=== PATIENT | female | born 1985 | race Caucasian/White ===

== ENCOUNTER 2021-02-18 02:25 | Inpatient (IN) | payer MEDICAID, SELFPAY ==
[2021-02-18 02:20] VITALS: BMI 23.0
[2021-02-18 02:26] VITALS: BP 135/83; PULSE 94; RESP 20; TEMP 36.5; O2SAT 98; BMI 23.0
[2021-02-18 02:39] LABS: Basophils # 0.1 K/mm3 (0-0.2); Basophils % 0.8 % (0.1-2.0); Eosinophils % 0.5 % (0.1-12.0); Hematocrit 33.5 % (37.0-47.0); Hemoglobin 11.1 g/dL (12.2-16.2); Lymphocytes # 2.3 K/mm3 (0.7-4.5); Mean Corpuscular Hemoglobin 28.4 pg (27.0-31.2); Mean Corpuscular Volume 86.2 fl (81-99); Mean Platelet Volume 9.6 fl (7.4-10.4); Monocytes # 0.4 K/mm3 (0.1-1.0); Monocytes % 4.7 % (1.7-9.3); Neutrophils # 5.4 K/mm3 (1.8-7.8); Platelet Count 291 K/mm3 (142-424); Red Blood Count 3.89 M/mm3 (4.20-5.40); Red Cell Distribution Width 15.8 % (11.5-17.5); White Blood Count 8.1 K/mm3 (4.8-10.8)
[2021-02-18 02:42] LABS: Coronavirus 19, PCR Not Detected (NotDetected); Influenza A, PCR Not Detected (NotDetected); Influenza B, PCR Not Detected (NotDetected)
[2021-02-18 02:57] LABS: Chloride 108 mmol/L (98-107)
[2021-02-18 02:58] LABS: Potassium 3.6 mmoL/L (3.5-5.1); Sodium 137 mmol/L (136-145)
[2021-02-18 03:00] LABS: Blood Urea Nitrogen 6 mg/dl (7-17); Creatinine Clearance Estimated 186 mL/min (50-200); Estimated Glomerular Filt Rate 184 ml/min (>60); GFR (African American) 222 ML/MIN (>60)
[2021-02-18 03:01] LABS: Anion Gap 9.6 mEq/L (5-15); Calcium 8.3 mg/dl (8.4-10.2); Carbon Dioxide 23 mmol/L (22.0-30.0); Glucose 91 mg/dl (74-100)
--- NOTE | 2021-02-18 03:28 | HMH.ANESCL ---
[facility] Anesthesia Checklist - Patient Identification Patient Identification: Arm Band - Structural Data Admitted From: Home Planned Operative Procedure/s: Labor epidural Consent for Planned Operative Procedure(s) Verified: Yes - NPO Status Verified Time NPO: 00:00 - Airway Assessment C-Spine Mobility Assessed: Yes TMJ Mobility Assessed: Yes Dentition: Good Dentition - Neurological Assessment Level of Consciousness: Awake Hx Seizures: No Numbness or tingling in extremities: No - Anesthesia Plan Anesthesia Risk discussed: Yes Anesthesia Plan: Verified ASA Class: II Anesthesia Type: Epidural [facility] History I have reviewed the patient's past medical history: Yes *Have you ever received a pneumonia vaccine?: No *Have you received a flu vaccine this season?: No Anesthesia experience/problems:: None - *Social History Smoking Status: Unknown if ever smoked Alcohol Intake: current Alcohol Intake Frequency:: other Substance Use Type: heroin Last Used Substance: hours (ago) *Occupational Status:: other (Unknown) *Travel in the last 8 weeks: None Family Hx:: Unable to obtain
--- NOTE | 2021-02-18 03:55 | HMH.DN ---
- Delivery Note Delivery Date:: 02/18/21 Delivery Time:: 03:44 Anesthesia Type: Epidural Was labor medically induced?: No Induction method: none Gestational age (weeks): 40 delivered prior to 39 weeks?: No Justification for early elective delivery:: Active Labor Gender: Female at 1 minute: 9 at 5 minutes: 9 Delivery Procedure:: She is a 35-year-old 6 para 3 aborta 2 who was 40 weeks gestational age. She has been having her care in [facility] although it is not clear how much care she has had. At times during the she has been incarcerated. She is a heroin addict. She was on a methadone program for a while but most recently she has not been taking methadone. She has not had a way of getting to the methadone clinic she says. She says that she most recently used heroin yesterday. She came in in active labor and spontaneously rupture membranes. She rapidly progressed to full dilation and delivered spontaneously a liveborn female child at 3:44 AM on the morning of February 18, 2021. On deliver the head the anterior shoulder easily delivered followed by the rest of his body atraumatically. The baby was active and crying. I used DeLee suction to suction out the mouth and nose. There was some terminal meconium and the baby was covered in yellow amniotic fluid. We allowed the cord to continue to pulsate for approximately 1 minute. The cord was then doubly clamped and cut and the was handed off to Dr. Vidales who assigned Apgars of 9 at 1 minute and 9 at 5 minutes. She received IV oxytocin using gentle traction the cord and countertraction on the fundus I was able to easily deliver the placenta intact at 3:51 AM. It had a normal three-vessel cord. It was stained with meconium. There were no perineal or vaginal lacerations. We are not sure what her blood type is at this point in time. She plans to bottlefeed. Her estimated blood loss was approximately 150 cc. Placental Delivery Description: Spontaneous
--- NOTE | 2021-02-18 03:59 | HMH.OBAPHP ---
OB - H&P: HPI Antepartum - History of Present Illness Chief complaint: Contractions History of present illness: She is a 35-year-old 6 para 3 aborta 1 who is 40 weeks gestational age. She was seen at [facility] early in and had an ultrasound that confirmed her dates. It is unclear how much care she has had at [facility] in [facility]. She has been incarcerated at some point time in her . She is a heroin addict. She was receiving methadone at one point in time. She apparently did not have a ride to get to the clinic. She used heroin yesterday. She arrived in active labor and progressed rapidly to full dilation. - History of Present Criteria for establishing EDC:: LMP confirmed by 1st trimester US care: limited care Ultrasounds: normal 1st trimester US Obstetrical complications: other Medical complications: other Narrative: Heroin abuse during - Labs Blood type: O (+) positive Rubella: unknown RPR/VDRL: unknown GBS status: unknown HBsAG: unknown [facility] History I have reviewed the patient's past medical history: Yes Medical History: Denies:: Seizures *Have you ever received a pneumonia vaccine?: No *Have you received a flu vaccine this season?: No Anesthesia experience/problems:: None - *Social History Smoking Status: Unknown if ever smoked Alcohol Intake: current Alcohol Intake Frequency:: other Substance Use Type: heroin Last Used Substance: hours (ago) *Occupational Status:: other (Unknown) *Travel in the last 8 weeks: None Family Hx:: Unable to obtain Review of Systems - Review of Systems Review of systems:: pertinent systems reviewed and negative unless documented below Meds Allergies Allergy/AdvReac Type Severity Reaction Status Date / Time No Known Allergies Allergy Verified 02/18/21 02:26 OB - H&P: Exam - Constitutional no acute distress - Routine HEENT Exam Head: Present: normocephalic Eye: Present: EOMI, PERRL ENT: Present: mucous membranes moist - Routine Neck Exam Present: supple, full ROM - Routine Respiratory Exam Absent: accessory muscle use (good air entry bilaterally), respiratory distress, wheezes, crackles - Routine Cardiovascular Exam Present: RRR. Absent: murmur - Routine Abdominal Exam Present: soft, normoactive bowel sounds. Absent: tenderness, distended, guarding - Routine Rectal Exam Patient deferred: visual exam, digital exam - Routine Exam Patient deferred: external exam, groin exam, perineal exam - Routine Extremities Exam Present: full ROM. Absent: cyanosis, edema - Routine Skin Exam Present: intact. Absent: cyanosis - Routine Neurological Exam Present: alert, oriented X3 - Routine Psychiatric Exam Present: normal affect OB - Results - Labs Labs: Short CBC 02/18/21 Range/Units 02:10 WBC 8.1 (4.8-10.8) K/mm3 Hgb 11.1 L (12.2-16.2) g/dL Hct 33.5 L (37.0-47.0) % Plt Count 291 (142-424) K/mm3 BMP 02/18/21 02:10 Sodium 137 Potassium 3.6 Chloride 108 H Carbon Dioxide 23 BUN 6 L Creatinine 0.40 L Glucose 91 Calcium 8.3 L OB - A/P Antepartum (1) Normal delivery at term Status: Acute (2) Maternal drug use complicating , antepartum Status: Acute (3) complicated by maternal drug use, delivered, current hospitalization Status: Acute - Additional Plan Planning to breastfeed?: No Plan: other
--- NOTE | 2021-02-18 10:07 | P.PN_ITS ---
Internal Medicine - PN: Subj *Date: 02/18/21 *Time: 10:07 Interval history: She is doing well this morning. She is eating and drinking and ambulating. Her lochia is normal. Exam Vital signs and Labs for Last 24 Hours: Temp Pulse Resp BP Pulse Ox 97.7 F 94 H 20 135/83 98 02/18/21 02:26 02/18/21 02:26 02/18/21 02:26 02/18/21 02:26 02/18/21 02:26 Laboratory Results - last 24 hr 02/18/21 02:10: WBC 8.1, RBC 3.89 L, Hgb 11.1 L, Hct 33.5 L, MCV 86.2, MCH 28.4, MCHC 33.0, RDW 15.8, Plt Count 291, MPV 9.6, Neut % (Auto) 66.0, Lymph % (Auto) 28.0, [place] % (Auto) 4.7, Eos % (Auto) 0.5, Baso % (Auto) 0.8, Neut # (Auto) 5.4, Lymph # (Auto) 2.3, [place] # (Auto) 0.4, Eos # (Auto) 0.0, Baso # (Auto) 0.1 02/18/21 02:10: Sodium 137, Potassium 3.6, Chloride 108 H, Carbon Dioxide 23, Anion Gap 9.6, BUN 6 L, Creatinine 0.40 L, Estimated Creat Clear 186, Estimated GFR 184, Est GFR ( Amer) 222, Glucose 91, Calcium 8.3 L 02/18/21 02:10: Blood Type O Positive, Antibody Screen Negative 02/18/21 02:37: SARS-CoV-2 (PCR) Not detected, Influenza A Untype (PCR) Not detected, Influenza Type B (PCR) Not detected I & O for Last 24 hours: Intake & Output 02/15/21 02/16/21 02/17/21 02/18/21 11:59 11:59 11:59 11:59 Weight 130 lb - Constitutional no acute distress - *Routine HEENT Exam Head: Present: normocephalic Eye: Present: EOMI, PERRL ENT: Present: mucous membranes moist Assessment and Plan (1) Normal delivery at term Status: Acute Category: Medical Code(s): O80 - Encounter for full-term uncomplicated delivery (2) Maternal drug use complicating , antepartum Status: Acute Category: Medical Code(s): O99.320 - Drug use complicating , unspecified trimester (3) complicated by maternal drug use, delivered, current hospitalization Status: Acute Category: Medical Code(s): O99.324 - Drug use complicating childbirth; F19.90 - Other psychoactive substance use, unspecified, uncomplicated - Assessment and plan all Dx Assessment and Plan for all problems:: She is doing well this morning. We will plan to send her home in 48 hours.
[2021-02-18 13:11] LABS: Microscopic, Urine URINE MICROSCOPIC (MICROSCOPIC)
[2021-02-18 13:14] LABS: Appearance,Urine SL CLOUDY (Clear); Bilirubin,Urine Negative (Negative); Blood, Urine 3+ (Negative); Color,Urine YELLOW (Yellow); Glucose,Urine (UA) Negative (Negative); Ketones,Urine Negative (Negative); Leukocyte Esterase,Urine TRACE (Negative); Nitrate,Urine Negative (Negative); PH,Urine 6.5 (5.0-8.5); Protein,Urine Negative (Negative); Specific Gravity, Urine 1.015 (1.005-1.030)
[2021-02-18 13:26] LABS: Bacteria,Urine 1+ /lpf; RBC,Urine 20-50 #/hpf (0-3)
[2021-02-18 13:27] LABS: Amphetamine/Metha Screen,Urine Positive ng/ml (<1000); Barbiturates Screen,Urine Negative ng/ml (<200)
[2021-02-18 13:28] LABS: Benzodiazepines Screen,Urine Negative ng/ml (<200)
[2021-02-18 13:29] LABS: Cannabinoid Screen,Urine Negative ng/ml (<50); Cocaine Screen,Urine Negative ng/ml (<300)
[2021-02-18 13:30] LABS: Methadone Screen,Urine Negative ng/ml (<300)
[2021-02-18 13:31] LABS: Opiate Screen,Urine Negative ng/ml (<300); Phencyclidine Screen,Urine Negative ng/ml (<25)
[2021-02-18 19:37] VITALS: BP 147/85; PULSE 85; RESP 18; TEMP 36.4; O2SAT 99
[2021-02-19 08:00] VITALS: BP 126/74; PULSE 93; RESP 20; TEMP 36.5; O2SAT 99
[2021-02-19 08:57] LABS: Basophils % 0.4 % (0.1-2.0); Eosinophils # 0.1 K/mm3 (0.0-0.4); Eosinophils % 0.6 % (0.1-12.0); Hematocrit 30.7 % (37.0-47.0); Hemoglobin 10.4 g/dL (12.2-16.2); Lymphocytes # 2.6 K/mm3 (0.7-4.5); Lymphocytes % 27.5 % (10-50); Mean Corpuscular HGB Conc 33.9 g/dL (31.8-35.4); Mean Corpuscular Hemoglobin 28.9 pg (27.0-31.2); Mean Corpuscular Volume 85.2 fl (81-99); Mean Platelet Volume 9.7 fl (7.4-10.4); Monocytes # 0.4 K/mm3 (0.1-1.0); Monocytes % 4.3 % (1.7-9.3); Neutrophils # 6.4 K/mm3 (1.8-7.8); Neutrophils % 67.2 % (37.0-80.0); Platelet Count 295 K/mm3 (142-424); Red Blood Count 3.61 M/mm3 (4.20-5.40); Red Cell Distribution Width 16.1 % (11.5-17.5); White Blood Count 9.5 K/mm3 (4.8-10.8)
--- NOTE | 2021-02-19 10:45 | P.PN_ITS ---
Internal Medicine - PN: Subj *Date: 02/19/21 *Time: 10:45 (This is day #1. The patient is afebrile. Hemoglobin 10.4 g. Uterine fundus involuting well. Lochia normal. Patient tested positive for amphetamines, and the baby is having withdrawal symptoms. Lochia is normal. Impression: Stable. Plan is for discharge tomorrow.) Exam Vital signs and Labs for Last 24 Hours: Temp Pulse Resp BP Pulse Ox 97.7 F 93 H 20 126/74 99 02/19/21 08:00 02/19/21 08:00 02/19/21 08:00 02/19/21 08:00 02/19/21 08:00 Laboratory Results - last 24 hr 02/18/21 12:05: Urine Color Yellow, Urine Appearance Sl cloudy, Urine pH 6.5, Ur Specific [place] 1.015, Urine Protein Negative, Urine Glucose (UA) Negative, Urine Ketones Negative, Urine Blood 3+, Urine Nitrate Negative, Urine Bilirubin Negative, Urine Urobilinogen 1.0, Ur Leukocyte Esterase Trace, Urine RBC 20-50, Urine WBC 5-10, Ur Squamous Epith Cells 3-5, Urine Bacteria 1+ 02/18/21 12:05: Urine Opiates Screen Negative, Urine Methadone Screen Negative, Ur Barbituates Screen Negative, Ur Phencyclidine Scrn Negative, Ur Amphetamines Screen Positive H, U Benzodiazepines Scrn Negative, Urine Cocaine Screen Negative, U Marijuana (THC) Screen Negative 02/19/21 08:19: WBC 9.5, RBC 3.61 L, Hgb 10.4 L, Hct 30.7 L, MCV 85.2, MCH 28.9, MCHC 33.9, RDW 16.1, Plt Count 295, MPV 9.7, Neut % (Auto) 67.2, Lymph % (Auto) 27.5, [place] % (Auto) 4.3, Eos % (Auto) 0.6, Baso % (Auto) 0.4, Neut # (Auto) 6.4, Lymph # (Auto) 2.6, [place] # (Auto) 0.4, Eos # (Auto) 0.1, Baso # (Auto) 0.0 I & O for Last 24 hours: Intake & Output 02/16/21 02/17/21 02/18/21 02/19/21 11:59 11:59 11:59 11:59 Weight 130 lb Assessment and Plan (1) Normal delivery at term Status: Acute Category: Medical Code(s): O80 - Encounter for full-term uncomplicated delivery (2) Maternal drug use complicating , antepartum Status: Acute Category: Medical Code(s): O99.320 - Drug use complicating , unspecified trimester (3) complicated by maternal drug use, delivered, current hospitalization Status: Acute Category: Medical Code(s): O99.324 - Drug use complicating childbirth; F19.90 - Other psychoactive substance use, unspecified, uncomplicated
[2021-02-20 09:54] LABS: Rubella Antibodies, IgG <0.90 index (Immune >0.99)
[2021-02-20 12:15] LABS: Rapid Plasma Reagin Ab Titer Non Reactive (NonRea<1:1)
--- NOTE | 2021-02-20 15:38 | SW/DCPLANNER ---
CALLED [facility] ON THIS PAST THAT WAS A DROP IN ON SAT AND DELIVERED A LIVE BORN FEMALE THAT HAD TO BE IMMEDIATELY SENT TO THE [facility]. PATIENT WAS A KNOWN HERION ADDICT THAT STATED SHE HAD USED ON SATURDAY BEFORE SHE CAME TO THE HOSPITAL TO DELIVER. PATIENT LEFT HOSPITAL IMMEDIATELY AFTER DELIVERY AMA... I WAS ON THE PHONE WITH [facility] AND THE CALL DROPPED BEFORE I COULDN'T GET THE ID# ..CALLED BACK AND SPOKE WITH RAHUL iD# WAS OBTAINED [id number]
[2021-02-21 06:03] LABS: HIV Screen 4th Generation wRfx Non Reactive (Non Reactive); Hepatitis B Surface Antigen Negative (Negative)
[2021-03-06 16:12] LABS: Buprenorphine Negative (Cutoff=10)
--- NOTE | 2021-03-29 09:45 | P.DS_ITS ---
General - General Admission date:: 02/18/21 Discharge date: 02/19/21 HPI - History of Present Illness History of present illness: She is a 35-year-old 6 para 4 who has had limited care throughout her . She has been incarcerated at times. She is a heroin addict. She was on methadone for a period of time during her but apparently could not get a ride to the clinic. She did heroin the day before her delivery. Hospital Course Hospital Course: She arrived in active labor with ruptured membranes. She delivered a liveborn child. She has done well and has remained afebrile throughout her hospitalization. She is signing her self out AMA. The baby will not leave with the patient. food and nutrition services assistant hold is on the baby. She has O+ blood, her rubella status is nonimmune. She has unknown group B streptococcus status. She is leaving AGAINST MEDICAL ADVICE and we have told her she can follow-up with me in the office. Her condition on discharge is stable. This discharge summary was dictated on March 29, 2021. It was brought to my attention that a discharge summary was not done on the patient when she left AGAINST MEDICAL ADVICE. Rhogam Administration: Not Indicated Objective Vital signs: Temp Pulse Resp BP Pulse Ox 97.7 F 93 H 20 126/74 99 02/19/21 08:00 02/19/21 08:00 02/19/21 08:00 02/19/21 08:00 02/19/21 08:00 no acute distress DS: Diagnosis - Discharge Diagnosis (1) Normal delivery at term Status: Acute (2) Maternal drug use complicating , antepartum Status: Acute (3) complicated by maternal drug use, delivered, current hospitalization Status: Acute Discharge Plan - Patient Discharge Instructions ACTIVITY: No heavy lifting DIET: continue same diet Additional Instructions: nothing in the vagina for 6 weeks. Patient Instructions: Depression, Hemorrhage, DI for Labor and Delivery, Vaginal , DI for Pre-eclampsia, Preventing the Spread of Coronavirus Discharge Instructions - Follow up Plan Follow up with: Sagar Peterson MD [Primary Care Provider] - Disposition: Home, Self-Care Condition at discharge:: Stable Home Medications: Home Medications Medication Instructions Recorded Confirmed Type No Known Home Medications 02/18/21 02/18/21 History Prescriptions/Medication Reconciliation: Continued No Known Home Medications - Problem Reconciliation Problems Reviewed?: Yes
== END 2021-02-19 13:30 | disposition left against medical advice (07) | DRG 806 ==
LOC: OBOUT 02:26 → OB 02:26
PROVIDERS: Admitting Provider Nurse Practitioner Obstetrics & Gynecology; PCP Nurse Practitioner Obstetrics & Gynecology; Visit Provider Nurse Practitioner Obstetrics & Gynecology
DX: O99.324 Drug use complicating childbirth (principal); F11.20 Opioid dependence, uncomplicated; Z37.0 Single live birth; Z3A.40 40 weeks gestation of pregnancy
CPT/HCPCS: 59409; 36415; 59025; 80048; 80305; 80348; 81001; 85025; 86592; 86762; 86850; 87340; 94761; C9803; G0283; U0003; U0005